=== PATIENT | male | born 1960 | race Caucasian/White ===

== ENCOUNTER 2020-09-11 17:19 | Emergency (ER) | payer BC ==
[~2020-09-11] VITALS: Ht 165.1 cm; Wt 73.9 kg
[2020-09-11 20:14] LABS: BASOPHILS % 0.5 % (0.0-2.0); EOSINOPHILS % 0.5 % (0.0-5.0); HEMATOCRIT. 36.1 % (42.0-52.0); HEMOGLOBIN. 11.7 g/dL (14.0-18.0); LYMPHOCYTES % 18.3 % (20.0-50.0); MEAN CORPUSCULAR HEMOGLOBIN 22.9 pg (28.0-32.0); MEAN CORPUSCULAR VOLUME 70.7 fL (80.0-94.0); MONOCYTES % 9.4 % (2.0-8.0); NEUTROPHILS % 71.3 % (40.0-76.0); PLATELET 433 x1000/uL (130-400); RED BLOOD CELL COUNT 5.11 mill/uL (4.7-6.1); RED CELL DISTRIBUTION WIDTH 17.9 % (11.6-14.6)
[2020-09-11 20:22] LABS: CHLORIDE 107 mEq/L (98-107)
[2020-09-12 02:18] VITALS: BP 142/81
[2020-09-20] MEDS ORDERED: LEVO750T46 MT (13:46)
== END 2020-09-12 02:25 | disposition left against medical advice (07) ==
LOC: ER 17:19
DX: G24.9 Dystonia, unspecified (principal); D64.9 Anemia, unspecified; R59.0 Localized enlarged lymph nodes; J38.01 Paralysis of vocal cords and larynx, unilateral; Z87.891 Personal history of nicotine dependence
CPT/HCPCS: 36415; 70491; 71260; 80048; 85025; 99285; Z7610